=== PATIENT | female | born 1970 | race Caucasian/White ===

== ENCOUNTER 2021-10-07 03:52 | Inpatient (IN) | payer OTHER, SELFPAY ==
[~2021-10-07] VITALS: Ht 144.8 cm; Wt 57.2 kg
[2021-10-07 03:55] VITALS: BP 162/97
--- NOTE | 2021-10-07 03:55 | NUR ---
PATIENT PRESENTS TO ED WITH PAIN OOC S/P PLASTIC SURGERY. PT STATES " I CANT TAKE THE PAIN AND I RODE 4 HOURS TO GET HERE." C/O NAUSEA DENIES VOMITING. SKIN IS PALE, COOL, EDEMATOUS. NOTED TO HAVE COMPRESSION DRESSING TO BILAT ARMS AND ABD. SOME BLOOD NOTED TO ABD AREA. SUTURES NOTE TO POSTERIOR ARMS. AAOX4 WITH UNSTEADY GAIT. LUNGS CBTA. HR ELEVATED AT 103-105, EVEN AND REGULAR; PT DENIES ANY FEVER, CP, SOB, OR COUGH AT THIS TIME; PATIENT STATES PAIN OF 10/10 AT THIS TIME; ALL OTHER VS WITHIN DEFINED LIMITS; PATIENT POSITIONED FOR COMFORT; HOB ELEVATED; BEDRAILS UP X2; BED IN LOW POSITION. ERMD AWARE OF PT STATUS.
[2021-10-07] MEDS ORDERED: NACL 0.9% 1,000 ML IV ONE (04:00)
[2021-10-07] MEDS ORDERED: KCL 20 MEQ/WATER INJ PREMIX 100 ML IV ONE (04:00)
[2021-10-07] MEDS ORDERED: MAG SULF 2000 MG/WATER PREMIX 50 ML IV ONE (04:00)
[2021-10-07] MEDS ORDERED: MORPHINE SULFATE 4 MG/ML SYR IVP ONE (04:30)
[2021-10-07] MEDS ORDERED: ONDANSETRON 4 MG/2 ML VIAL IVP ONE (04:40)
[2021-10-07 05:11] LABS: ALBUMIN 2.6 g/dL (3.4-5.0); ANION GAP 14.3 (8-16); CARBON DIOXIDE 23.7 mmol/L (21-32); CREATININE 0.9 mg/dL (0.6-1.3); TOTAL BILIRUBIN 0.5 mg/dL (0.0-1.0)
--- NOTE | 2021-10-07 05:12 | NUR ---
PROVIDED PATIENT WITH MULTIPLE COLD PACKS DUE FEELING HOT AND "FEELS LIKE MY INSIDES ARE BURNING-- PATIENT REPORTS FEELING RELIEF.
--- NOTE | 2021-10-07 05:12 | NUR ---
Shon scott in [facility] - 10/07/21 at 0517 by MATT PROVIDED PATIENT WITH MULTIPLE COLD PACKS DUE FEELING HOT AND "FEELS LIKE MY INSIDES ARE BURNING.
[2021-10-07 05:19] LABS: BASOPHILS % (AUTO) 0.2 % (0.0-2.0); HEMATOCRIT 24.8 % (36-48); HEMOGLOBIN 8.4 g/dL (12.0-16.0); LYMPHOCYTES # (AUTO) 2.1 K/uL (2.5-16.5); LYMPHOCYTES % (AUTO) 8.7 % (20.5-51.1); MEAN CORPUSCULAR HEMOGLOBIN 32 pg (27-31); MEAN CORPUSCULAR HGB CONC 34 g/dL (33-37); MEAN CORPUSCULAR VOLUME 93.2 fL (80-94); MONOCYTES # (AUTO) 1.3 K/uL (0.8-1.0); MONOCYTES % (AUTO) 5.2 % (1.7-9.3); NEUTROPHILS # (AUTO) 20.9 K/uL (1.8-7.7); PLATELET COUNT (AUTO) 270 K/uL (140-450); RED BLOOD CELL COUNT(AUTO) 2.66 MIL/uL (4.20-5.40); RED CELL DISTRIBUTION WIDTH 13.3 % (11.6-13.7); WHITE BLOOD COUNT (AUTO) 24.4 K/uL (4.8-10.8)
[2021-10-07 05:26] LABS: NEUTROPHILS % (AUTO) 85.9 % (42.2-75.2)
--- NOTE | 2021-10-07 05:30 | NUR ---
PATIENT DESATURATED TO 88% ON RA. PLACED PATIENT ON 4L O2 AND SATURATED AT 95%. PATIENT HAVING DIFFICULTY TAKING FULL DEEP BREATHS-- ERMD MADE AWARE
--- NOTE | 2021-10-07 05:37 | NUR ---
PATIENT TO CT VIA [facility]
--- NOTE | 2021-10-07 05:57 | NUR ---
PT BACK FROM CT VIA [facility]
[2021-10-07] MEDS ORDERED: MORPHINE SULFATE 2 MG/ML SYR IVP PRN (06:10)
[2021-10-07] MEDS ORDERED: LORazepam 2 MG/ML VIAL IM/IVP PRN (06:10)
[2021-10-07] MEDS ORDERED: SODIUM PHOS / POTASSIUM PHOS 1 PKT PDR PO PRN (06:10)
[2021-10-07] MEDS ORDERED: ZOLPIDEM 5 MG TAB PO PRN (06:10)
[2021-10-07] MEDS ORDERED: MAG SULF 2000 MG/WATER PREMIX 50 ML IV PRN (06:10)
[2021-10-07] MEDS ORDERED: ONDANSETRON 4 MG/2 ML VIAL IVP PRN (06:10)
[2021-10-07] MEDS ORDERED: ACETAMINOPHEN 325 MG TAB PO PRN (06:10)
[2021-10-07] MEDS ORDERED: POTASSIUM CHLORIDE 10 MEQ TABER PO PRN (06:10)
--- NOTE | 2021-10-07 06:46 | NUR ---
CONTINUES IN DEPT WITH NIECE AT BEDSIDE. PT RESTING WITH EYES CLOSED. APPEARS MORE COMFORTABLE. PT INDICATES SHE IS MORE COMFORTABLE. PT NO LONGER PALE. RRE/U, O2 SAT 96% ON 2 LPM VIA NC. PENDING BED ASSIGNMENT.
[2021-10-07 07:04] LABS: PROTHROMBIN TIME 10.3 secs (10.8-13.4)
--- NOTE | 2021-10-07 07:07 | NUR ---
PATIENT HAS BEEN SCREENED AND CATEGORIZED MODERATE NUTRITION RISK. PATIENT WILL BE SEEN WITHIN 3-5 DAYS OF ADMISSION. 10/10/21-10/12/21 KARSTEN MARQUEZ MS, RDN
[2021-10-07 07:24] LABS: CHOL/HDL RATIO 2.9 (1-4.5); FREE T4 (FREE THYROXINE) 1.01 ng/dL (0.76-1.46); PHOSPHORUS 2.2 mg/dL (2.5-4.9); THYROID STIMULATING HORMONE 2.61 uIU/mL (0.34-3.74)
--- NOTE | 2021-10-07 07:29 | NUR ---
RECEIVED REPORT FROM ELISEO GARDNER, ASSUMED CARE AT THIS TIME.
--- NOTE | 2021-10-07 07:40 | NUR ---
PATIENT UNABLE TO PROVIDE URINE AT THIS TIME.
--- NOTE | 2021-10-07 07:58 | NUR ---
PATIENT PROVIDED WITH BREAKFAST TRAY, ASSISTED UP IN BED. ASSISTED PATIENT WITH EATING AND DRINKING. ALL NEEDS MET AT THIS TIME.
--- NOTE | 2021-10-07 09:00 | NUR ---
PATIENT C/O 9/10 PAIN, MEDICATED WITH PRN MEDS ORDERED.
[2021-10-07] MEDS: HYDROmorphone 1 MG/ML AMP IVP PRN ×3 (09:04→23:38)
[2021-10-07] MEDS: NACL 0.9% 1,000 ML IV SCH ×3 (09:20→20:21)
--- NOTE | 2021-10-07 09:40 | NUR ---
MRSA AND SOFY SWABS COLLECTED AND WALKED TO LAB.
--- NOTE | 2021-10-07 10:09 | NUR ---
PATIENT ASSISTED ONTO BEDPAN, URINE SAMPLE COLLECTED AND HANDED TO GRAIN OILSEED OR PASTURE GROWER.
--- NOTE | 2021-10-07 10:24 | NUR ---
Patient will be admitted to care of DR. BARILLAS. Admited to TELE. Will go to room 119B. Belongings list completed. Report to
--- NOTE | 2021-10-07 10:24 | NUR ---
RECEIVED PATIENT REPORT FROM ER NURSE. AWAITING FOR PATIENT TO ARRIVE.
[2021-10-07 10:35] VITALS: BP 145/73
[2021-10-07 10:35] LABS: APPEARANCE,URINE SL CLOUDY (CLEAR); BILIRUBIN,URINE NEGATIVE (NEGATIVE); BLOOD, URINE 1+ (NEGATIVE); COLOR,URINE YELLOW (YELLOW); LEUKOCYTE ESTERASE ,URINE TRACE (NEGATIVE); NITRITE, URINE NEGATIVE (NEGATIVE); UGLUCOSE NEGATIVE (NEGATIVE)
--- NOTE | 2021-10-07 10:35 | NUR ---
RECEIVED PATIENT FROM ER NURSE BY [facility]. PT IS AOX4, ABLE TO MAKE NEEDS KNOWN. RESPIRATIONS EVEN AND UNLABORED. ON 2L NC WITH NO RESPIRATORY DISTRESS. SKIN IS WARM, DRY, AND NON-INTACT. HAS LONG SURGICAL WOUND ON LOWER ABDOMEN WITH SLIGHT SEROSANGUINEOUS DRAINAGE. COVERED AREA WITH ABDOMINAL BINDER. MULTIPLE SUTURES ON BILATERAL AXILLARY AREA. SUTURES INTACT AND NO DRAINAGE. HAS HEMOVAC DRAINAGE WITH TUBE ATTACHED TO RIGHT HIP AND SACRAL AREA. PATIENT COMPLAINS OF 10/10 GENERALIZED PAIN. WILL MEDICATED MD ORDERED. ABD IS SOFT, FLAT, AND TENDER. BOWEL SOUNDS ACTIVE IN ALL QUADRANTS. PLAN OF CARE DISCUSSED. SAFETY PRECAUTIONS IN PLACE. CALL LIGHT WITHIN REACH. WILL CONTINUE TO MONITOR.
[2021-10-07 10:41] LABS: BARBITURATE, URINE NEGATIVE ng/ml (NEG <=200); BENZODIAZEPINE, URINE NEGATIVE ng/mL (NEG <=200); CANNABINOID, URINE NEGATIVE ng/mL (NEG <=50); COCAINE, URINE NEGATIVE ng/mL (NEG <=300); PHENCYCLIDINE SCREEN,URINE NEGATIVE ng/mL (NEG <=25)
[2021-10-07 10:42] LABS: OPIATE, URINE POSITIVE ng/mL (NEG <=2000)
[2021-10-07 12:00] VITALS: BP 140/76
--- NOTE | 2021-10-07 12:40 | NUR ---
300 ML OF SEROSANGUINEOUS FLUIDS WERE REMOVED IN DRAINAGE BULB.
[2021-10-07] MEDS: HYDROcodone/APAP 5/325 MG 1 TAB TAB PO PRN (13:02)
--- NOTE | 2021-10-07 13:02 | NUR ---
PATIENT COMPLAINED OF GENERALIZED 6/10 PAIN. ADMINISTERED PRN PAIN MEDICATIONS PER MD ORDERED.
[2021-10-07] MEDS: PIPERACILLIN/TAZOBACTAM 3.375 GM in DEXTROSE 5% 50 ML IV SCH ×2 (13:46→21:02)
--- NOTE | 2021-10-07 13:55 | NUR ---
ALL SCHEDULED MEDS GIVEN. PT IS STABLE. NO DISTRESS NOTED. WILL CONTINUE TO MONITOR.
--- NOTE | 2021-10-07 15:45 | NUR ---
CHECKED ON PATIENT. PT IS ASLEEP. NOTED CHEST RISE AND FALL. NO DISTRESS NOTED. WILL CONTINUE TO MONITOR.
[2021-10-07 16:00] VITALS: BP 136/66
--- NOTE | 2021-10-07 17:40 | NUR ---
PATIENT COMPLAINED OF GENERALIZED 10/10 PAIN. ADMINISTERED PRN PAIN MEDICATIONS PER MD ORDERED.
--- NOTE | 2021-10-07 19:15 | NUR ---
ENDORSED TO RIDE ATTENDANT NURSE FOR CONTINUITY OF CARE. PT IS STABLE.
--- NOTE | 2021-10-07 19:20 | NUR ---
RECD. REPORT FROM A NURSE. PATIENT RESTING IN BED, AWAKE, A/OX4. RESPIRATION EVEN AND UNLABORED. ON 02 AT 2 LITERS VIA N/C. WITH MULTIPLE SUTURES ON BILATERAL AXILLARY AREA, NO DRAINAGE SURGICAL WOUND ON LOWER ABDOMEN COVERED WITH ABDOMINAL PAD DRESSING, DRY AND INTACT. WITH HEMOVAC WITH MODERATE AMOUNT OF SEROSANGUINEOUS DRAINAGE CONNECTED TO RIGHT HIP AND SACRAL AREA. ABDOMEN SOFT, NON TENDER. WITH POSITIVE BOWEL SOUNDS ON ALL QUADRANTS. INQUIRED ABOUT HER PAIN LEVEL, VERBALIZED SHE IS FINE RIGHT NOW AND WILL CALL NURSE WHEN SHE NEEDS PAIN MEDICATION. WANTS TO SPEAK WITH HER ATTENDING MD, EXPLAINED THEY WILL MAKE ROUNDS TOMORROW AND SHE CAN ASK ALL ABOUT HER CONCERNS. VERBALIZED UNDERSTANDING. Addendum: 10/08/21 at 0243 by Cnostance Linares LVN CORRECTION: RECD. REPORT FROM AM NURSE.
[2021-10-07 20:00] VITALS: BP 149/55
--- NOTE | 2021-10-07 21:02 | NUR ---
PATIENT RESTING IN BED, WATCHING TV. ZOSYN IVPB ADMINISTERED BY CHARGE NURSE LUIS. NO COMPLAINT OF BODY PAINS AT THIS TIME. REMINDED TO EAT HER DINNER. VERBALIZED SHE WILL CALL TO WARM IT WHEN SHE IS READY TO EAT.
--- NOTE | 2021-10-07 23:00 | NUR ---
PATIENT VERBALIZED HER UPPER EXTREMITIES ARE BOTH IMMOBILE DUE TO HER SURGERY. ASSISTED OUT OF BED TO AMBULATE TO THE TO VOID WITH HELP FROM CHARGE NURSE LUIS. BACK TO BED AFTER VOIDING, MADE COMFORTABLE IN BED WITH BLANKETS AND PILLOWS.
[2021-10-08] VITALS: BP 150/64
--- NOTE | 2021-10-08 01:00 | NUR ---
RESTING IN BED, RESPIRATION EVEN AND UNLABORED. ASLEEP ON HER BACK. NO APPEARANCE OF PAIN OR DISCOMFORT NOTED.
[2021-10-08] MEDS: NACL 0.9% 1,000 ML IV SCH ×3 (02:10→22:55)
--- NOTE | 2021-10-08 03:00 | NUR ---
CHECKED PATIENT, STILL SLEEPING COMFORTABLY IN BED. RESPIRATION EVEN AND UNLABORED. NO APPEARANCE OF PAIN OR DISCOMFORT NOTED.
[2021-10-08] MEDS: HYDROcodone/APAP 5/325 MG 1 TAB TAB PO PRN ×3 (03:54→20:06)
[2021-10-08 04:00] VITALS: BP 100/58
--- NOTE | 2021-10-08 04:00 | NUR ---
IV GOT ACCIDENTALLY PULLED OUT BY PATIENT WHILE SLEEPING. NEW IV LINE INSERTED BY CHARGE NURSE LUIS AT THE RIGHT HAND G24.
[2021-10-08] MEDS: PIPERACILLIN/TAZOBACTAM 3.375 GM in DEXTROSE 5% 50 ML IV SCH ×3 (04:42→21:44)
--- NOTE | 2021-10-08 05:06 | NUR ---
Patient's Plan of Care was discussed and reviewed with HAND DRAWER IN HELPER: ILYA MENDOSA
--- NOTE | 2021-10-08 07:35 | NUR ---
CONDITION REMAIN STABLE. ENDORSED TO AM SHIFT NURSE FOR CONTINUITY OF CARE.
--- NOTE | 2021-10-08 07:40 | NUR ---
RECEIVED PT FROM NIGHT RN, PT IS AWAKE AND ALERT AND ORIENTED, IV LINE NOTED ON THE RT HAND G. 24 WITH NS INFUSING AT 100ML/HR, PT IS ON ON 2L NC, PT HAS AN ABDOMINAL INCISIONS NOTED FROM THE LIPOSUCTION PROCEDURE DONE TO IN ANOTHER PLACE, HEMOVAC IN PLACE AND DRAINED 150ML, NO SIGN OF DISTRESS NOTED NAD WILL CONTINUE TO MONITOR PT.
[2021-10-08 08:00] VITALS: BP 159/62
--- NOTE | 2021-10-08 08:08 | NUR ---
DR. GREG PAULINO AND DR. BARILLAS WERE IN THE PT'S ROOM AND TALKING TO PT NOW AND ASSESSING THE PT, PT IS RESPONDING APPROPRIATELY AND VERBALIZED UNDERSTANDING.
--- NOTE | 2021-10-08 08:45 | NUR ---
PT WAS ASSISTED TO BE CLEANED AND BINDER WAS PLACED IN REPLACEMENT FOR THE BODY GIRDLE THAT IS WET AND DIRTY
[2021-10-08] MEDS: HYDROmorphone 1 MG/ML AMP IVP PRN ×3 (09:37→23:24)
--- NOTE | 2021-10-08 09:37 | NUR ---
PT WAS GIVEN IV PUSH PAIN MEDICATION NOW, BP IS 138/79, PULSE IS 88, WILL RE-ASSESS PAIN AND MONITOR PT.
[2021-10-08 11:20] LABS: BASOPHILS % (AUTO) 0.2 % (0.0-2.0); EOSINOPHILS # (AUTO) 0.1 K/uL (0-0.4); EOSINOPHILS % (AUTO) 0.6 % (0.0-4.0); HEMATOCRIT 22.4 % (36-48); HEMOGLOBIN 7.5 g/dL (12.0-16.0); LYMPHOCYTES # (AUTO) 1.9 K/uL (2.5-16.5); LYMPHOCYTES % (AUTO) 9.4 % (20.5-51.1); MEAN CORPUSCULAR HEMOGLOBIN 31 pg (27-31); MEAN CORPUSCULAR HGB CONC 33 g/dL (33-37); MEAN CORPUSCULAR VOLUME 93.3 fL (80-94); MONOCYTES # (AUTO) 0.7 K/uL (0.8-1.0); MONOCYTES % (AUTO) 3.6 % (1.7-9.3); NEUTROPHILS % (AUTO) 86.2 % (42.2-75.2); PLATELET COUNT (AUTO) 320 K/uL (140-450); RED CELL DISTRIBUTION WIDTH 13.6 % (11.6-13.7); WHITE BLOOD COUNT (AUTO) 19.8 K/uL (4.8-10.8)
[2021-10-08 11:36] LABS: ALBUMIN 2.1 g/dL (3.4-5.0); ANION GAP 10.9 (8-16); CARBON DIOXIDE 26.5 mmol/L (21-32); CREATININE 0.7 mg/dL (0.6-1.3); POTASSIUM 3.4 mmol/L (3.5-5.1); TOTAL BILIRUBIN 0.3 mg/dL (0.0-1.0)
[2021-10-08 12:00] VITALS: BP 149/78
--- NOTE | 2021-10-08 13:13 | NUR ---
PT WAS GIVEN THE SCHEDULED IVPB ZOSYN NOW. NO SIGN OF DISTRESS NOTED AND WILL CONTINUE TO MONITOR PT.
--- NOTE | 2021-10-08 13:43 | NUR ---
PT WAS MEDICATED WITH PAIN MEDICATION AND K-DUR 40MEQ WAS GIVEN WELL FOR K LEVEL OF 3.2.
[2021-10-08] MEDS: DOCUSATE SODIUM 100 MG GELCAP PO PRN (13:51)
--- NOTE | 2021-10-08 15:15 | NUR ---
PT WAS BEING ASSISTED BY TITLE SEARCH MANAGER AND PT AMBULATED TO THE BATHROOM, STEADY GAIT.
[2021-10-08 16:00] VITALS: BP 149/61
--- NOTE | 2021-10-08 17:34 | NUR ---
ULTRASOUND VENOUS OF BILATERAL EXTREMITIES WAS BEING DONE TO PT NOW.
--- NOTE | 2021-10-08 18:22 | NUR ---
ULTRASOUND VENOUS OF BILATERAL UPPER EXTREMITIES WAS FINISHED NOW.
--- NOTE | 2021-10-08 19:26 | NUR ---
ENDORSED PT TO NIGHT RN FOR CONTINUITY OF CARE.
--- NOTE | 2021-10-08 19:27 | NUR ---
RECD. RESTING IN BED, AWAKE, A/OX4. RESPIRATION EVEN AND UNLABORED. IV OF NS INFUSING AT 100 ML/HR AT THE RIGHT HAND G24. ABLE TO AMBULATE WITH ASSISTANCE TO THE BR. COMPLAINING OF NUMBNESS AND SWELLING OF BILATERAL ARMS. ELEVATED ON PILLOWS AND APPLIED ICE PACKS. FEELING SHE HAS FLUIDS IN HER ARMS, WANTS DIURETICS, WILL INFORM MD. WITH HEMOVAC CONNECTED TO RIGHT HIP AND BUTTOCKS DRAINING SANGUINOUS FLUID, MODERATE AMOUNT. BODY PAINS, 1/10, WILL MEDICATE PER MD ORDER. PATIENT IS ON IV ANTIBIOTICS.
[2021-10-08 20:00] VITALS: BP 157/64
--- NOTE | 2021-10-08 20:00 | NUR ---
Patient's Plan of Care was discussed and reviewed with PROBATE JUDGE: NAVYA CARABALLO
[2021-10-08] MEDS ORDERED: FUROSEMIDE 20 MG/2 ML VIAL IVP SCH (20:25)
--- NOTE | 2021-10-08 21:00 | NUR ---
RESTING IN BED, MORE ICE PACKS GIVEN REQUESTED. NO RESPIRATORY DISTRESS NOTED. CALL LIGHT IN REACH.
--- NOTE | 2021-10-08 23:36 | NUR ---
Assisting with the care of this pt. She is a/o x 4. She had IV issues. These were resolved after establishing that the IV had a good blood return, and she could feel the cold stream of NS infusing upon flashing. A few moments ago, Dilaudid 1 mg has been administered. Will reassess in 30 minutes. Significant other remains at the bedside assisting her. She ambulated the unit length several times with the significant other along side her. Will continue to monitor.
[2021-10-09] VITALS: BP 153/71
--- NOTE | 2021-10-09 | NUR ---
SLEEPING COMFORTABLY IN BED. RESPIRATION EVEN AND UNLABORED. CALM AND RELAXED IN BED.
--- NOTE | 2021-10-09 02:00 | NUR ---
IN COMFORTABLY SLEEPING. NO RESPIRATORY DISTRESS NOTED. CALL LIGHT IN REACH.
[2021-10-09] MEDS: HYDROcodone/APAP 5/325 MG 1 TAB TAB PO PRN ×2 (03:09→12:57)
[2021-10-09 04:00] VITALS: BP 155/75
--- NOTE | 2021-10-09 04:00 | NUR ---
HR - 96, REMAIN SINUS RHYTHM ON TELE MONITORING. STILL SLEEPING COMFORTABLY IN BED.
[2021-10-09] MEDS: PIPERACILLIN/TAZOBACTAM 3.375 GM in DEXTROSE 5% 50 ML IV SCH ×2 (05:16→13:08)
[2021-10-09 05:38] LABS: BASOPHILS # (AUTO) 0.1 K/uL (0.00-0.22); BASOPHILS % (AUTO) 0.3 % (0.0-2.0); EOSINOPHILS # (AUTO) 0.2 K/uL (0-0.4); EOSINOPHILS % (AUTO) 1.4 % (0.0-4.0); HEMATOCRIT 21.8 % (36-48); HEMOGLOBIN 7.4 g/dL (12.0-16.0); LYMPHOCYTES # (AUTO) 2.7 K/uL (2.5-16.5); LYMPHOCYTES % (AUTO) 15.8 % (20.5-51.1); MEAN CORPUSCULAR HEMOGLOBIN 32 pg (27-31); MEAN CORPUSCULAR HGB CONC 34 g/dL (33-37); MEAN CORPUSCULAR VOLUME 93.4 fL (80-94); MONOCYTES # (AUTO) 0.9 K/uL (0.8-1.0); MONOCYTES % (AUTO) 5.4 % (1.7-9.3); NEUTROPHILS # (AUTO) 13.3 K/uL (1.8-7.7); NEUTROPHILS % (AUTO) 77.1 % (42.2-75.2); PLATELET COUNT (AUTO) 345 K/uL (140-450); RED BLOOD CELL COUNT(AUTO) 2.33 MIL/uL (4.20-5.40); RED CELL DISTRIBUTION WIDTH 13.3 % (11.6-13.7); WHITE BLOOD COUNT (AUTO) 17.3 K/uL (4.8-10.8)
[2021-10-09 06:12] LABS: ANION GAP 10.6 (8-16); CARBON DIOXIDE 26.2 mmol/L (21-32); CREATININE 0.7 mg/dL (0.6-1.3); POTASSIUM 3.8 mmol/L (3.5-5.1); TOTAL BILIRUBIN 0.3 mg/dL (0.0-1.0)
--- NOTE | 2021-10-09 07:30 | NUR ---
RECEIVED REPORT FROM OCEAN FREIGHT AGENT NURSE FOR CONTINUITY OF CARE. PATIENT RESTING IN BED AT THIS TIME. PATIENT IS ALERT AND ORIENTED X4. RESPIRATION EVEN AND UNLABORED. PATIENT HAS MULTIPLE SUTURES ON BILATERAL AXILLARY AREA, NO DRAINAGE SURGICAL WOUND ON LOWER ABDOMEN COVERED WITH ABDOMINAL PAD DRESSING, DRY AND INTACT. WITH HEMOVAC WITH MODERATE AMOUNT OF SEROSANGUINEOUS DRAINAGE CONNECTED TO RIGHT HIP AND SACRAL AREA. ABDOMEN SOFT, NON TENDER. WITH BOWEL SOUNDS NOTED ON ALL QUADRANTS. PATIENT HAS IV TO RIGHT HAND, 24G. IV IS INTACT AND PATIENT. IV IS RUNNING NS AT 100ML/HR. NO SIGNS OF PAIN OR DISTRESS NOTED. ALL SAFETY MEASURES IN PLACE. CALL LIGHT WITHIN REACH. WILL CONTINUE TO MONITOR.
[2021-10-09 08:00] VITALS: BP 150/65
--- NOTE | 2021-10-09 08:15 | NUR ---
WOUND CARE EVALUATION NOTE: WOUND ASSESSMENT DONE TO THIS 51 Y/O PT. AAX4. BILATERAL AXILLARIES AND LOWER ABDOMEN SURGICAL WOUNDS, FINE SUTURES IN PLACE, WOUND SITE DRY AND CLEAN, NO S/S OF INFECTION. HEMOVAC AT LOWER BACK AND RLQ ABDOMEN TUBINGS SECURED WITH SUTURES, HEMOVAC FUNCTIONING WITH 50 % FULL OF SEROSANGUINEOUS DRAINAGE INSIDE CANISTER. DRESSED WITH COMPRESSION UNDER GARMENT TO TRUNK OF BODY. POC DISCUSSED WITH PT. AND PER PT. SHE WILL CONTINUE TO FOLLOW UP HER SURGEON. RECOMMENDATIONS: -BILATERAL AXILLARIES AND LOWER ABDOMEN SURGICAL WOUNDS KEEP AREA DRY AND CLEAN, APPLY ISLAND DRESSING DAILY AND PRN IF SOILING -PLEASE MONITOR HEMOVAC Q SHIFT -CONTINUE TO WEAR COMPRESSION UNDERGARMENT
[2021-10-09] MEDS: NACL 0.9% 1,000 ML IV SCH (08:21)
[2021-10-09] MEDS: DOCUSATE SODIUM 100 MG GELCAP PO PRN (08:41)
[2021-10-09] MEDS: HYDROmorphone 1 MG/ML AMP IVP PRN (08:48)
--- NOTE | 2021-10-09 08:48 | NUR ---
PATIENT COMPLAIN OF PAIN. STATES PAIN IS 9/10. PAIN MEDICATION ADMINISTERED BY RN. WILL CONTINUE TO MONITOR.
--- NOTE | 2021-10-09 08:52 | NUR ---
PATIENT COMPLAINS OF UPPER EPIGASTRIC GI PAIN. PAIN IS CONSTANT AND IS CONTROLLED BY MEDICATION , MEDITATION ND RELAXATION TECHNIQUES WERE INEFFECTIVE. Addendum: 10/09/21 at 0856 by Morena Child RN RN FAMILY MEMBER AT BEDSIDE. PATIENT EDUCATED AND STATED HER LAST BM WAS PREVIOUS WEEK ON SATURDAY . SHE WAS ALREADY GIVEN STOOL SOFTENER ALL SAFETY MEASURES ARE IN PLACE.
--- NOTE | 2021-10-09 11:55 | NUR ---
PATIENT HAD INCONTINENT INCIDENT. STATES SHE NEEDED TO USE REST ROOM AND DID NOT GET TO REST ROOM ON TIME. CLEANED UP PATIENT. CHANGED HER GOWN, AND CLEANED UP REST ROOM AND FLOOR.
[2021-10-09 12:00] VITALS: BP 156/69
[2021-10-09] MEDS ORDERED: NON ADHERENT DRESSING TP SCH (13:00)
--- NOTE | 2021-10-09 14:10 | NUR ---
PATIENT CALLED NURSES STATION AND REQUEST TO SPEAK TO NURSE. PATIENT INFORMED NURSE THAT NEUROLOGIST SPOKE WITH HER AND TOLD HER THAT SHE NEEDED TO BE TRANSFERRED OUT OF [facility] IMMEDIATELY FOR HIGHER LEVEL OF CARE. PATIENT ASKED NURSE IF THE TRANSFER WAS "SET IN STONE". NURSE INFORMED PATIENT THAT AUTOMATIC SPREADER OPERATOR WAS WORKING ON IT. WILL INFORM HER WHEN MORE INFORMATION IS AVAILABLE. PATIENT STATED "OK I WAS JUST WONDERING".
--- NOTE | 2021-10-09 14:15 | NUR ---
DC PLANNING: CALLED [employer] ([employer]) INSURANCE [phone] SPOKE WITH LAURIE SEBASTIAN, STATED STILL REVIEWING THE CASE TO GIVE THE AUTH. I NOTIFIED HER THAT PER NEUROLOGIST ORDERED PT NEEDS IMMEDIATE TRANSFER TO HIGHER LEVEL OF CARE FOR MRI AND POSSIBLE NEURO SURGERY INTERVENTION. FAXED THE ORDER PER ROMULO WILL DISCUSES IT WITH CHEMICAL OPERATIONS AND TRAINING AND CALL ME BACK. CM TO FOLLOW
--- NOTE | 2021-10-09 17:50 | NUR ---
PATIENT IS REQUESTING TO GO AGAINST [facility]. EDUCATED PATIENT ON RISK OF LEAVING AGAINST [facility]. PATIENT STATED "I SPOKE WITH MY CO AND HE IS ADVISING ME TO GO AMA AND DRIVE TO [facility] AND GO TO THE ER AND GET ADMITTED. I AM TIRED OF WAITING TO GET TRANSFERRED". INFORMED PATIENT OF AMA PROTOCOLS. PATIENT STATED AN UNDERSTANDING OF INFORMATION PROVIDED. PATIENT HOWEVER IS UNABLE TO SIGN AMA PAPERWORK AT THIS TIME TO DO ARM WEAKNESS/NUMBNESS. PATIENT STATED SHE WOULD LIKE HER TO SIGN. PATIENT'S AGREED TO SIGN AMA PAPERWORK. DR REDDY MADE AWARE.
--- NOTE | 2021-10-09 18:37 | NUR ---
PATIENT LEFT AGAINST [facility]. WRIST BAND REMOVED. IV REMOVED. IV CATHETER INTACT. PATIENT WALKED OFF UNIT WITH HER , DID NOT WANT TO WAIT TO BE ESCORTED OUT VIA WHEEL CHAIR. CHARGE NURSE MADE AWARE.
== END 2021-10-09 18:30 | disposition left against medical advice (07) | DRG 862 ==
LOC: MED 03:52 → MTU 06:10
PROVIDERS: ADMIT Family Medicine; ATTEND Family Medicine
DX: T81.40XA Infection following a procedure, unspecified, initial encounter (principal); A41.9 Sepsis, unspecified organism; E43 Unspecified severe protein-calorie malnutrition; Y83.8 Other surgical procedures as the cause of abnormal reaction of the patient, or of later complication, without mention of misadventure at the time of the procedure; Y92.89 Other specified places as the place of occurrence of the external cause; G62.9 Polyneuropathy, unspecified; R74.01 Elevation of levels of liver transaminase levels; E83.39 Other disorders of phosphorus metabolism; E87.6 Hypokalemia; Z20.822 Contact with and (suspected) exposure to COVID-19; E86.0 Dehydration
CPT/HCPCS: 36415; 71045; 80053; 80305; 81001; 82150; 83036; 83690; 83735; 83880; 84100; 84439; 84443; 84484; 85025; 85610; 85730; 87040; 87081; 87086; 93005; 93970; 96361; 96365; 96375; 97110; 97163-GP; 97530; 99285; J1170; J1940; J2270; J2405; J2543; J3475; J3480; J7060; Q0092